=== PATIENT | female | born 1975 | race Caucasian/White ===

== ENCOUNTER 2021-10-14 09:36 | Outpatient (CLI) | payer OTHER ==
[2021-10-14] MEDS ORDERED: Magnevist 469MG/ML 20 ML VIAL ONE (09:49)
== END 2021-10-14 09:37 | disposition home or self-care (01) ==
LOC: CSHMRI 09:36
PROVIDERS: ATTEND Internal Medicine Hematology & Oncology
DX: I81 Portal vein thrombosis (principal)
CPT/HCPCS: 74183